=== PATIENT | male | born 1980 | race Caucasian/White ===

== ENCOUNTER 2018-08-12 10:00 | Day surgery (SDC) | payer OTHER ==
[~2018-08-12] VITALS: Ht 180.3 cm; Wt 107.0 kg
[~2018-08-12 10:00] MED LIST: No meds per pt.
[2018-08-12 10:32] VITALS: BP 149/87
[2018-08-12] MEDS ORDERED: EPINEPHRINE 1 MG/ML, 1ML ONE (10:37)
[2018-08-12] MEDS ORDERED: BUPIVACAINE/PF 0.5% ONE (10:37)
[2018-08-12] MEDS ORDERED: MIDAZOLAM 1 MG/ML, 2ML ONE (10:49)
[2018-08-12] MEDS ORDERED: FENTANYL PF 250 MCG/5ML ONE (10:50)
[2018-08-12] MEDS ORDERED: LACTATED RINGERS 1,000 ML IV SCH (10:52)
[2018-08-12] MEDS ORDERED: LABETALOL 5MG/ML, 20ML IV PRN (11:30)
[2018-08-12] MEDS ORDERED: MORPHINE SULFATE 4 MG/ML, 1ML IVPush PRN (11:30)
[2018-08-12] MEDS ORDERED: FENTANYL PF 100 MCG/2ML IV PRN (11:30)
[2018-08-12] MEDS ORDERED: PROMETHAZINE 25 MG/ML, 1ML IM PRN ×2 (11:30)
[2018-08-12] MEDS ORDERED: HYDROmorphone 2 MG/ML, 1ML IVPush PRN (11:30)
[2018-08-12] MEDS ORDERED: hydrALAzine 20 MG/ML, 1ML IV PRN (11:30)
[2018-08-12] MEDS ORDERED: PROMETHAZINE 12.5 MG SUPP PR PRN (11:30)
[2018-08-12] MEDS ORDERED: ONDANSETRON ODT 8 MG PO PRN (11:30)
[2018-08-12] MEDS ORDERED: MEPERIDINE/PF 25MG/0.5ML IVPush PRN (11:30)
[2018-08-12] MEDS ORDERED: PROMETHAZINE 25 MG/ML, 1ML IV PRN (11:30)
[2018-08-12] MEDS ORDERED: ONDANSETRON 2MG/ML, 2ML IV PRN (11:30)
[2018-08-12] MEDS ORDERED: ACETAMINOPHEN 325 MG TABLET PO PRN (11:30)
[2018-08-12] MEDS ORDERED: PROMETHAZINE 25 MG SUPP PR PRN (11:30)
[2018-08-12] MEDS ORDERED: OXYcodone 5 MG/5 ML ORAL.SOL UDC PO PRN (11:30)
[2018-08-12] MEDS ORDERED: CEFAZOLIN 1,000 MG ONE ×2 (12:38)
[2018-08-12] MEDS ORDERED: KETOROLAC 30 MG/1 ML ONE (12:38)
[2018-08-12] MEDS ORDERED: PROPOFOL 10 MG/ML, 20ML ONE (12:38)
[2018-08-12] MEDS ORDERED: OXYcodone 5 MG/5 ML ORAL.SOL UDC ONE (13:11)
[2018-08-12] MEDS ORDERED: ACETAMINOPHEN 650 MG/20.3 ML UDC ONE (13:11)
== END 2018-08-12 14:20 | disposition home or self-care (01) ==
LOC: OUT 10:00
PROVIDERS: ATTEND Surgery
DX: K42.9 Umbilical hernia without obstruction or gangrene (principal); I10 Essential (primary) hypertension; F17.210 Nicotine dependence, cigarettes, uncomplicated; Z72.89 Other problems related to lifestyle
CPT/HCPCS: 49585; C1781; J0171; J0690; J1885; J2250; J2704; J3010; J3490; J7120